=== PATIENT | male | born 1970 | race Caucasian/White ===

== ENCOUNTER 2024-04-25 17:44 | Inpatient (IN) | payer OTHER ==
[~2024-04-25] VITALS: Ht 177.8 cm; Wt 126.7 kg
[2024-04-25] MEDS: FUROSEMIDE 40 MG/4 ML VIAL IV ONE (18:07)
[2024-04-25] MEDS: NITROGLYCERIN 2% OINT 1GM PKG TD ONE (18:08)
[2024-04-25] MEDS: HYDROCORTISONE SOD SUCC 100 MG/2ML INJ VIAL IV ONE (18:08)
[2024-04-25 18:12] VITALS: O2SAT 100
[2024-04-25 18:30] LABS: Basophils # (auto) 0.1 10 ^3/uL (0-0.2); Eosinophils # (auto) 0.1 10 ^3/uL (0-0.8); Hemoglobin 7.3 g/dL (13.5-17.5); Monocytes # (auto) 0.6 10 ^3/uL (0-1.3); Neutrophils # (auto) 6.7 10 ^3/uL (1.6-8.6); White Blood Cell 8.7 10^3/uL (4.4-10.8)
[2024-04-25 18:32] LABS: Basophils % (auto) 0.7 % (0.0-2.0); Eosinophils % (auto) 1.4 % (0.0-7.0); Hematocrit 22.9 % (41.0-53.0); Lymphocytes # (auto) 1.2 10 ^3/uL (0.4-5.4); Lymphocytes % (auto) 14.1 % (10.0-50.0); Mean Corpuscular Hemoglobin 25.4 pg (28.0-32.0); Mean Corpuscular Hgb Conc. 31.9 g/dL (32.0-36.0); Mean Corpuscular Volume 79.6 fL (80.0-100.0); Monocytes % (auto) 6.5 % (0.0-12.0); Neutrophils % (auto) 77.3 % (37.0-80.0); Red Blood Cells 2.88 10^6/uL (4.5-5.90); Red Cell Distribution Width 18.4 % (11.8-14.3)
[2024-04-25] MEDS: ALBUTEROL SULF 2.5 MG/0.5ML(0.5%) NEB SOLN NEB ONE ×2 (18:40→18:41)
[2024-04-25] MEDS: IPRATROPIUM BROM 0.5 MG/2.5ML INH SOL NEB ONE (18:40)
[2024-04-25] MEDS: MAGNESIUM SULFATE 1GM/100ML 100 ML IV SCH (18:41)
[2024-04-25 18:48] LABS: INR 1.12 (0.9-1.15); Partial Thromboplastin Time 35.7 SEC (24.5-34.5); Prothrombin Time 11.8 sec (9.3-11.8)
[2024-04-25 18:48] LABS: Albumin 3.3 g/dL (3.2-4.8); Alkaline Phosphatase 129 U/L (46-116); Anion Gap 9 (5-15); Aspartate Aminotransferase 45 U/L (13-40); Bilirubin, Total 0.4 mg/dL (0.2-1.0); Blood Urea Nitrogen 25 mg/dL (9-23); Calcium 8.7 mg/dL (8.7-10.4); Carbon Dioxide 24 mmol/L (20-30); Chloride 91 mmol/L (98-107); Glucose 109 mg/dL (74-106); Magnesium 2.1 mg/dL (1.6-2.6); Potassium 3.6 mmol/L (3.5-5.1); Sodium 124 mmol/L (136-145); Total Protein 6.9 g/dL (5.7-8.2)
[2024-04-25 18:51] LABS: Alanine Aminotransferase < 9 U/L (7-40)
[2024-04-25 19:25] VITALS: PULSE 85; RESP 26; O2SAT 98
[2024-04-25 19:41] LABS: Base Excess 1.6 mmol/L (-2.0-2.0)
[2024-04-25] MEDS: HEPARIN SODIUM (PORCINE) 5000 UNITS/ML 1ML VIAL IV ONE (20:25)
[2024-04-25] MEDS: ASPirin 325 MG TAB PO ONE (20:26)
[2024-04-25 20:59] LABS: Urine Bacteria FEW /hpf (None Seen); Urine Blood 3+ /uL (Negative); Urine Clarity Turbid (Clear); Urine Color Light-Orange (Yellow); Urine Protein, UAD 1+ (Negative); Urine Specific Gravity 1.008 (1.001-1.035); Urine Urobilinogen Normal (Negative); Urine WBC 16 /hpf (0 - 3); Urine pH 5.5 (5.0-9.0)
[2024-04-25 21:42] LABS: Basophils # (auto) 0 10 ^3/uL (0-0.2); Basophils % (auto) 0.4 % (0.0-2.0); Eosinophils # (auto) 0 10 ^3/uL (0-0.8); Eosinophils % (auto) 0.3 % (0.0-7.0); Hematocrit 25.4 % (41.0-53.0); Hemoglobin 7.8 g/dL (13.5-17.5); Lymphocytes # (auto) 1.2 10 ^3/uL (0.4-5.4); Lymphocytes % (auto) 9.1 % (10.0-50.0); Mean Corpuscular Hemoglobin 24.9 pg (28.0-32.0); Mean Corpuscular Hgb Conc. 30.9 g/dL (32.0-36.0); Mean Corpuscular Volume 80.6 fL (80.0-100.0); Monocytes # (auto) 0.3 10 ^3/uL (0-1.3); Monocytes % (auto) 2.5 % (0.0-12.0); Neutrophils # (auto) 11.8 10 ^3/uL (1.6-8.6); Neutrophils % (auto) 87.7 % (37.0-80.0); Red Blood Cells 3.15 10^6/uL (4.5-5.90); White Blood Cell 13.4 10^3/uL (4.4-10.8)
[2024-04-25 22:04] LABS: INR 1.13 (0.9-1.15); Partial Thromboplastin Time 43.3 SEC (24.5-34.5); Prothrombin Time 11.9 sec (9.3-11.8)
[2024-04-25 22:11] VITALS: PULSE 88; RESP 18; O2SAT 99
[2024-04-25] MEDS ORDERED: ONDANSETRON HCL 4 MG/2 ML VIAL IV PRN (22:30)
[2024-04-25] MEDS: HEPARIN DRIP/D5W 100UNITS/ML 250 ML IV SCH (22:30)
[2024-04-25] MEDS ORDERED: NITROGLYCERIN 0.4 MG SL TAB SL PRN (22:30)
[2024-04-25] MEDS ORDERED: DEXTROSE (50%) 50ML SYRG IV PRN (22:30)
[2024-04-25] MEDS ORDERED: MORPHINE SULFATE INJ 2 MG/ml SYRG IV PRN (22:30)
[2024-04-25] MEDS ORDERED: DOCUSATE SOD 100 MG CAP PO PRN (22:30)
[2024-04-25] MEDS ORDERED: VANCOMYCIN PER PHARMACY 0 MG IV SCH (22:30)
[2024-04-25 22:44] LABS: Base Excess 0.9 mmol/L (-2.0-2.0)
[2024-04-25 23:25] VITALS: BP 135/59; PULSE 89; RESP 27; TEMP 97.7
[2024-04-25] MEDS ORDERED: NICO14DI29 TOP (23:29)
[2024-04-25 23:45] VITALS: BP 119/57; PULSE 99; RESP 23; TEMP 98
[2024-04-25] MEDS ORDERED: hydrALAZINE HCL 20 MG/ML VL IV PRN (23:45)
[2024-04-26] VITALS (14 sets, daily range): BP systolic 107–144; BP diastolic 50–59; PULSE 81–92; RESP 14–25; TEMP 97.7–98.1; O2SAT 96–100
[2024-04-26] MEDS: ACCU-CHEK COMFORT CURVE STRIP VI SCH
[2024-04-26] MEDS: VANCOMYCIN 1GM/200ML 200 ML IV ONE (00:06)
[2024-04-26] MEDS: IPRATROPIUM BROM 0.5 MG/2.5ML INH SOL NEB SCH (00:14)
[2024-04-26] MEDS: ALBUTEROL SULF 2.5 MG/0.5ML(0.5%) NEB SOLN NEB SCH (00:15)
[2024-04-26] MEDS: FUROSEMIDE INJECTION 100 MG in SODIUM CHL 0.9% 100 ML IV SCH (00:42)
[2024-04-26] MEDS: ATORVASTATIN 20 MG TAB PO SCH (00:54)
[2024-04-26] MEDS: FUROSEMIDE 40 MG/4 ML VIAL IV SCH (05:32)
[2024-04-26 06:11] LABS: Basophils # (auto) 0 10 ^3/uL (0-0.2); Eosinophils # (auto) 0 10 ^3/uL (0-0.8); Mean Corpuscular Hemoglobin 25.9 pg (28.0-32.0); Mean Corpuscular Volume 80.2 fL (80.0-100.0); Monocytes # (auto) 0.5 10 ^3/uL (0-1.3); Monocytes % (auto) 4.5 % (0.0-12.0); Neutrophils # (auto) 9.8 10 ^3/uL (1.6-8.6)
[2024-04-26 06:23] LABS: Basophils % (auto) 0.2 % (0.0-2.0); Eosinophils % (auto) 0.1 % (0.0-7.0); Hematocrit 25.5 % (41.0-53.0); Hemoglobin 8.3 g/dL (13.5-17.5); Lymphocytes # (auto) 1.2 10 ^3/uL (0.4-5.4); Lymphocytes % (auto) 10.2 % (10.0-50.0); Mean Corpuscular Hgb Conc. 32.4 g/dL (32.0-36.0); Red Blood Cells 3.18 10^6/uL (4.5-5.90); Red Cell Distribution Width 18.5 % (11.8-14.3); White Blood Cell 11.5 10^3/uL (4.4-10.8)
[2024-04-26 06:43] LABS: Albumin 3.5 g/dL (3.2-4.8); Alkaline Phosphatase 146 U/L (46-116); Anion Gap 11 (5-15); Aspartate Aminotransferase 59 U/L (13-40); BUN/Creatinine Ratio 13.4 (10.0-20.0); Blood Urea Nitrogen 30 mg/dL (9-23); Calcium 9.2 mg/dL (8.5-10.1); Carbon Dioxide 23 mmol/L (20-30); Chloride 91 mmol/L (98-107); Glucose 130 mg/dL (74-106); Potassium 3.8 mmol/L (3.5-5.1); Sodium 125 mmol/L (136-145)
[2024-04-26 06:44] LABS: Bilirubin, Total 0.5 mg/dL (0.2-1.0); Total Protein 7.3 g/dL (5.7-8.2)
[2024-04-26 06:45] LABS: Alanine Aminotransferase < 9 U/L (7-40)
[2024-04-26] MEDS: HEPARIN DRIP/D5W 100UNITS/ML 250 ML IV SCH (07:00)
[2024-04-26 08:25] LABS: LDL Cholesterol 122 mg/dL (< 100); Triglycerides 138 mg/dL (< 150)
[2024-04-26 08:26] LABS: Cholesterol 175 mg/dL (< 200); HDL Cholesterol 25 mg/dL (40-59)
[2024-04-26 08:39] LABS: Amphetamine Screen, Urine Neg (NEGATIVE); Barbiturate Scree,Urine Neg (NEGATIVE); Benzodiazephine Screen, Urine Neg (NEGATIVE); Cocaine Screen, Urine Neg (NEGATIVE); Opiate Scree,Urine Neg (NEGATIVE)
[2024-04-26 08:40] LABS: Cannabinoid Screen, Urine Neg (NEGATIVE); Phencyclidine Screen, Urine Neg (NEGATIVE)
[2024-04-26] MEDS: ASPirin-EC 81 mg tab PO SCH (10:00)
[2024-04-26] MEDS: NICOTINE 14 MG/24HR TOPICAL PATCH TD SCH (10:00)
[2024-04-26] MEDS: CEFEPIME 1GM/ 50ML 50 ML IV SCH (10:00)
[2024-04-26] MEDS: PANTOPRAZOLE 40 MG/10 ML VIAL INJ IV SCH (10:00)
[2024-04-26] MEDS: POTASSIUM CHL 20 Meq TABLET PO ONE (11:57)
[2024-04-26] MEDS: DOXYCYCLINE 100MG/250ML 250 ML IV SCH (11:57)
[2024-04-26 12:47] LABS: COVID19 ANTIGEN SOFIA FIA NEGATIVE (NEGATIVE); Rapid Influenza A Negative (Negative); Rapid Influenza B Negative (Negative)
[2024-04-26 13:51] LABS: Magnesium 2.3 mg/dL (1.6-2.6)
[2024-04-26 13:52] LABS: % Iron Saturation 8.6 % (20-55)
[2024-04-26 13:56] LABS: INR 1.09 (0.9-1.15); Prothrombin Time 11.5 sec (9.3-11.8)
[2024-04-26 14:01] LABS: CRP High Sensitivity 9.73 mg/dL (<1.0)
[2024-04-26 14:10] LABS: Hepatitis B Surface Antigen Negative (Negative)
[2024-04-26 14:14] LABS: Hepatitis B Surface Antibody Positive (Negative)
[2024-04-26] MEDS: VANCOMYCIN 1GM/200ML 200 ML IV SCH (14:21)
[2024-04-26 14:31] LABS: Hepatitis C Antibody Negative (Negative)
[2024-04-26] MEDS: SODIUM FERR GLUC 62.5MG/5ML 110 ML IV SCH (23:04)
[2024-04-26] MEDS: HEPARIN SODIUM (PORCINE) 5000 UNITS/ML 1ML VIAL SC SCH (23:19)
[2024-04-27] VITALS (18 sets, daily range): BP systolic 105–131; BP diastolic 50–65; PULSE 18–101; RESP 16–20; TEMP 97.5–98.3; O2SAT 96–100
[2024-04-27] MEDS: MORPHINE SULFATE INJ 2 MG/ml SYRG IV PRN (00:18)
[2024-04-27] MEDS ORDERED: LISI20TA56 PO (03:01)
[2024-04-27] MEDS ORDERED: CYCL-839 PO (03:04)
[2024-04-27 06:54] LABS: Basophils # (auto) 0 10 ^3/uL (0-0.2); Basophils % (auto) 0.5 % (0.0-2.0); Eosinophils # (auto) 0.1 10 ^3/uL (0-0.8); Eosinophils % (auto) 0.8 % (0.0-7.0); Hematocrit 22.8 % (41.0-53.0); Hemoglobin 7.2 g/dL (13.5-17.5); Lymphocytes # (auto) 1.4 10 ^3/uL (0.4-5.4); Lymphocytes % (auto) 14.5 % (10.0-50.0); Mean Corpuscular Hemoglobin 25.4 pg (28.0-32.0); Mean Corpuscular Hgb Conc. 31.4 g/dL (32.0-36.0); Mean Corpuscular Volume 80.8 fL (80.0-100.0); Monocytes # (auto) 0.8 10 ^3/uL (0-1.3); Monocytes % (auto) 7.9 % (0.0-12.0); Neutrophils # (auto) 7.4 10 ^3/uL (1.6-8.6); Neutrophils % (auto) 76.3 % (37.0-80.0); Red Blood Cells 2.83 10^6/uL (4.5-5.90); Red Cell Distribution Width 18.9 % (11.8-14.3); White Blood Cell 9.7 10^3/uL (4.4-10.8)
[2024-04-27 07:11] LABS: Albumin 3.2 g/dL (3.2-4.8); Alkaline Phosphatase 123 U/L (46-116); Anion Gap 10 (5-15); Aspartate Aminotransferase 48 U/L (13-40); BUN/Creatinine Ratio 15.2 (10.0-20.0); Bilirubin, Total 0.5 mg/dL (0.2-1.0); Blood Urea Nitrogen 32 mg/dL (9-23); Calcium 8.6 mg/dL (8.5-10.1); Carbon Dioxide 25 mmol/L (20-30); Chloride 92 mmol/L (98-107); Glucose 98 mg/dL (74-106); Magnesium 2.1 mg/dL (1.6-2.6); Potassium 3.4 mmol/L (3.5-5.1); Sodium 127 mmol/L (136-145); Total Protein 6.5 g/dL (5.7-8.2)
[2024-04-27 07:12] LABS: Alanine Aminotransferase < 9 U/L (7-40)
[2024-04-27 07:27] LABS: Urine Bacteria FEW /hpf (None Seen); Urine Blood 3+ /uL (Negative); Urine Clarity Turbid (Clear); Urine Color Colorless (Yellow); Urine Protein, UAD 1+ (Negative); Urine Specific Gravity 1.006 (1.001-1.035); Urine Urobilinogen Normal (Negative); Urine WBC 5 /hpf (0 - 3); Urine pH 5.5 (5.0-9.0)
[2024-04-27 07:34] LABS: Protein, Urine 46.7 mg/dL (0.0-11.9)
[2024-04-27 07:37] LABS: Creatinine, Urine 31.09 mg/dL (30.0-125.0)
[2024-04-27] MEDS: POTASSIUM CHLORIDE 40 MEQ, LIDOCAINE 1% (LOCAL ANESTH.) 4 ML in SODIUM CHL 0.9% 250 ML IV ONE (09:25)
[2024-04-27] MEDS ORDERED: VANCOMYCIN 1GM/200ML 200 ML IV SCH (14:00)
[2024-04-27] MEDS: CEFEPIME 1GM/ 50ML 50 ML IV SCH (15:39)
[2024-04-27] MEDS ORDERED: DOCU-94 PO (16:40)
[2024-04-27] MEDS ORDERED: HYDR-4798 PO (16:40)
[2024-04-27] MEDS ORDERED: ASPI81CH59 PO (16:40)
[2024-04-27] MEDS ORDERED: FOLI-119 PO (16:40)
[2024-04-27] MEDS: VANCOMYCIN 1GM/200ML 200 ML IV SCH (18:30)
== END 2024-04-27 22:52 | disposition short-term general hospital (02) | DRG 871 ==
LOC: EDBD 17:44 → ER 17:44 → TELE 22:24 → TELE-WESTW 04-26 22:41
PROVIDERS: ADMIT Internal Medicine; ATTEND Internal Medicine
PROC: 30233N1 Transfusion of Nonautologous Red Blood Cells into Peripheral Vein, Percutaneous Approach (ICD-10-PCS; principal; 2024-04-25)
PROC: 5A09357 Assistance with Respiratory Ventilation, Less than 24 Consecutive Hours, Continuous Positive Airway Pressure (ICD-10-PCS; 2024-04-25)
PROC: 5A0935A Assistance with Respiratory Ventilation, Less than 24 Consecutive Hours, High Flow/Velocity Cannula (ICD-10-PCS; 2024-04-26)
DX: A41.9 Sepsis, unspecified organism (principal); I21.A1 Myocardial infarction type 2; I50.43 Acute on chronic combined systolic (congestive) and diastolic (congestive) heart failure; J96.21 Acute and chronic respiratory failure with hypoxia; J15.69 Pneumonia due to other Gram-negative bacteria; J15.9 Unspecified bacterial pneumonia; N17.0 Acute kidney failure with tubular necrosis; I13.0 Hypertensive heart and chronic kidney disease with heart failure and stage 1 through stage 4 chronic kidney disease, or unspecified chronic kidney disease; E87.1 Hypo-osmolality and hyponatremia; J44.1 Chronic obstructive pulmonary disease with (acute) exacerbation; N39.0 Urinary tract infection, site not specified; E87.3 Alkalosis; J44.0 Chronic obstructive pulmonary disease with (acute) lower respiratory infection; Z68.41 Body mass index [BMI] 40.0-44.9, adult; E78.5 Hyperlipidemia, unspecified; N18.9 Chronic kidney disease, unspecified; E11.22 Type 2 diabetes mellitus with diabetic chronic kidney disease; T50.995A Adverse effect of other drugs, medicaments and biological substances, initial encounter; E66.01 Morbid (severe) obesity due to excess calories; D50.9 Iron deficiency anemia, unspecified; M10.9 Gout, unspecified; K21.9 Gastro-esophageal reflux disease without esophagitis; F41.9 Anxiety disorder, unspecified; F17.210 Nicotine dependence, cigarettes, uncomplicated; Z86.73 Personal history of transient ischemic attack (TIA), and cerebral infarction without residual deficits; Y92.89 Other specified places as the place of occurrence of the external cause
CPT/HCPCS: 36415; 36600; 71045; 71250; 76775; 80053; 80061; 80202; 80307; 81001; 82570; 82728; 82805; 82962; 83036; 83540; 83550; 83605; 83735; 83880; 83930; 83935; 84100; 84156; 84300; 84443; 84484; 85025; 85610; 85730; 86141; 86706; 86803; 86850; 86900; 86901; 86920; 87040; 87070; 87081; 87086; 87205; 87340; 87426; 87804; 93005; 93306; 93970; 94640; 94660; 99291; C9113; G0378; J2001; J3490

== ENCOUNTER 2024-06-02 00:09 | Emergency (ER) | payer MEDICAID, OTHER ==
[~2024-06-02] VITALS: Ht 177.8 cm; Wt 102.0 kg
[~2024-06-02 00:09] MED LIST: ASPI81CH59 PO; CYCL-839 PO; DOCU-94 PO; FOLI-119 PO; HYDR-4798 PO; LISI20TA56 PO; NICO14DI29 TOP
[2024-06-02 01:32] LABS: Basophils # (auto) 0.1 10 ^3/uL (0-0.2); Eosinophils # (auto) 0.2 10 ^3/uL (0-0.8); Hematocrit 25.4 % (41.0-53.0); Monocytes # (auto) 0.7 10 ^3/uL (0-1.3); Neutrophils # (auto) 5.5 10 ^3/uL (1.6-8.6)
[2024-06-02 01:34] LABS: Eosinophils % (auto) 2.3 % (0.0-7.0); Hemoglobin 8.5 g/dL (13.5-17.5); Lymphocytes # (auto) 1.5 10 ^3/uL (0.4-5.4); Lymphocytes % (auto) 19.2 % (10.0-50.0); Mean Corpuscular Hemoglobin 27.6 pg (28.0-32.0); Mean Corpuscular Hgb Conc. 33.5 g/dL (32.0-36.0); Mean Corpuscular Volume 82.4 fL (80.0-100.0); Monocytes % (auto) 8.3 % (0.0-12.0); Neutrophils % (auto) 69.2 % (37.0-80.0); Red Blood Cells 3.08 10^6/uL (4.5-5.90); Red Cell Distribution Width 18.9 % (11.8-14.3); White Blood Cell 7.9 10^3/uL (4.4-10.8)
[2024-06-02 01:53] LABS: Alanine Aminotransferase 22 U/L (7-40); Albumin 3.4 g/dL (3.2-4.8); Alkaline Phosphatase 226 U/L (46-116); Anion Gap 10 (5-15); Aspartate Aminotransferase 20 U/L (13-40); BUN/Creatinine Ratio 27.1 (10.0-20.0); Bilirubin, Total 0.9 mg/dL (0.2-1.0); Blood Urea Nitrogen 56 mg/dL (9-23); Carbon Dioxide 22 mmol/L (20-30); Chloride 98 mmol/L (98-107); Glucose 64 mg/dL (74-106); Potassium 3.7 mmol/L (3.5-5.1); Sodium 130 mmol/L (136-145); Total Protein 6.3 g/dL (5.7-8.2)
[2024-06-02 02:36] VITALS: PULSE 96; RESP 19; O2SAT 94
[2024-06-02 07:25] LABS: Urine Bacteria None Seen /hpf (None Seen)
[2024-06-02 07:46] LABS: Urine Blood 3+ /uL (Negative); Urine Clarity Clear (Clear); Urine Color Light-Yellow (Yellow); Urine Protein, UAD TRACE (Negative); Urine Specific Gravity 1.008 (1.001-1.035); Urine Urobilinogen Normal (Negative); Urine WBC 8 /hpf (0 - 3); Urine pH 5.5 (5.0-9.0)
[2024-06-02 07:54] VITALS: BP 115/82; TEMP 98.1
[2024-06-02 07:59] VITALS: PULSE 89; RESP 16; O2SAT 96
== END 2024-06-02 08:25 | disposition left against medical advice (07) ==
LOC: EDBD 00:09 → ER 00:09 → EDUNIT# 00:09 → ER 08:25
DX: R07.89 Other chest pain (principal); R79.89 Other specified abnormal findings of blood chemistry; F17.210 Nicotine dependence, cigarettes, uncomplicated; E11.9 Type 2 diabetes mellitus without complications; K21.9 Gastro-esophageal reflux disease without esophagitis; I10 Essential (primary) hypertension; Z86.73 Personal history of transient ischemic attack (TIA), and cerebral infarction without residual deficits
CPT/HCPCS: 36415; 71111; 80053; 81001; 83880; 84484; 85025; 93005

== ENCOUNTER 2024-06-11 00:27 | Emergency (ER) | payer MEDICAID ==
[~2024-06-11] VITALS: Ht 177.8 cm; Wt 100.0 kg
[2024-06-11 00:45] VITALS: BP 93/56; PULSE 91; RESP 18; O2SAT 100
== END 2024-06-11 04:35 | disposition left against medical advice (07) ==
LOC: ER 00:27
DX: F41.9 Anxiety disorder, unspecified (principal); Z76.0 Encounter for issue of repeat prescription; Z53.21 Procedure and treatment not carried out due to patient leaving prior to being seen by health care provider

== ENCOUNTER → 2024-06-15 20:23 | Emergency (ER) | payer MEDICAID ==
[~2024-06-15] VITALS: Ht 170.2 cm; Wt 113.6 kg
[2024-06-15 20:34] VITALS: BP 106/73; PULSE 97; RESP 20; O2SAT 96
== END | disposition left against medical advice (07) ==
LOC: EDUNIT# 20:22 → EDBD 20:23 → ER 20:23
DX: F41.9 Anxiety disorder, unspecified (principal); Z53.21 Procedure and treatment not carried out due to patient leaving prior to being seen by health care provider